=== PATIENT | male | born 1945 ===

== ENCOUNTER 2019-11-10 07:30 | Outpatient (CLI) | payer SELFPAY ==
[2019-11-13 19:06] LABS: SARS-CoV-2 RNA Undetected (Undetected); SARS-CoV-2 Specimen Source Nasopharynx
== END 2019-11-10 07:50 ==
PROVIDERS: PCP Family Medicine; Visit Provider Family Medicine
DX: Z11.59 Encounter for screening for other viral diseases
CPT/HCPCS: U0003